=== PATIENT | female | born 1975 | race Caucasian/White ===

== ENCOUNTER 2018-04-09 05:26 | Day surgery (SDC) | payer OTHER, SELFPAY ==
[2018-03-04 11:41] VITALS: BMI 23.3
[2018-04-01 12:03] VITALS: BMI 23.3
[2018-04-01 13:27] LABS: Absolute Lymphocyte Count 1.92 X10^3/ul (0.83-4.51); Absolute Neutrophil Count 5.8 X10^3/uL (2.0-7.7); Basophil# 0.04 X10^3/uL; Basophil% 0.5 % (0-1); Eosinophil# 0.24 X10^3/uL; Eosinophils% 2.7 % (0-5); Hematocrit 44.4 % (37-47); Hemoglobin 14.2 g/dl (12.0-15.0); Lymphocyte # 1.92 X10^3/ul (4.0); Lymphocyte % 21.9 % (19-41); Mean Corpuscular Hgb 28.7 pg (27.0-32.0); Mean Corpuscular Volume 89.7 fL (81-99); Mean Platelet Vol. 10.3 fl (6.2-12.0); Monocyte# 0.78 X10^3/uL; Monocyte% 8.9 % (0-10); Neutrophil # 5.78 X10^3/uL (2.7-7.7); Neutrophil % 65.9 % (47-70); Platelet Count 259 K/mm3 (150-450); RBC Distribution Width CV 12.8 % (11.6-14.6); RBC Distribution Width SD 41.6 fl (35.1-43.9); Red Blood Count 4.95 M/mm3 (4.2-5.4); White Blood Count 8.8 K/mm3 (4.4-11.0)
[2018-04-01 13:28] LABS: POSITIVE COUNT NO; POSITIVE DIFFERENTIAL NO; POSITIVE MORPHOLOGY NO
[2018-04-01 13:49] LABS: Thyroid Stim Hormone (TSH) 1.13 uIU/mL (0.358-3.74)
[2018-04-09] VITALS (15 sets, daily range): BP systolic 74–124; BP diastolic 42–73; PULSE 60–96; RESP 16; TEMP 36.4–36.9; O2SAT 96–100; BMI 23.4
--- NOTE | 2018-04-09 06:04 | PCM.HPOB.BLA ---
- Problem List (1) Abnormal uterine bleeding Status: Chronic Comment: failed medical management and IUD plan TVH BS History and Physical Date of Admission: 04/09/18 Vital Signs 04/01/18 Body Mass Index (BMI) 23.3 04/01/18 Height 5 ft 3 in 04/01/18 Weight: 133 lb 04/01/18 Body Mass Index (BMI) 23.6 04/01/18 Blood Pressure 102/62 Intake Visit Reasons: pre op TVH BS Chief Complaint: pre op appt TVH BS Director Of Finance Required: No Is patient in pain?: No Allergies adhesive Allergy (Mild, Verified 04/01/18 12:03) Rash penicillin G Allergy (Mild, Verified 04/01/18 12:03) family history of allergy/pt has never had reaction to med. Medications thyroid (pork) 60 mg tablet 60 mg PO MOTUWETHFR 06/09/17 [History Confirmed 04/01/18] B-Complex with Vitamin C [Super B Complex-Vitamin C] 1 ea PO QHS 03/26/18 [History Confirmed 04/01/18] Cholecalciferol (Vitamin D3) [Vitamin D3] 2,000 unit PO QHS 03/26/18 [History Confirmed 04/01/18] Fish Oil/Dha/Epa [Fish Oil 1,200 mg Fish Oil] 1 ea PO QHS 03/26/18 [History Confirmed 04/01/18] Magnesium Oxide [Magnesium] 500 mg PO QHS 03/26/18 [History Confirmed 04/01/18] Thyroid [[place] Thyroid] 2 tab PO SUSA 03/26/18 [History Confirmed 04/01/18] Is last menstrual period known: No Post menopausal: No Patient : No : No PFSH Medical History Abnormal Pap smear of cervix (Acute) Thyroid disorder (Acute) Family History Grandfather Heart disease Diabetes Grandmother Diabetes Social History Smoking Status: Never smoker alcohol intake: never substance use type: does not use caffeine: No what type of physical activity do you participate in: none seatbelt use: always do you feel safe at home: Yes additional social history: Engaged ([employer]) [place] Patient works as an Benefits Analyst HPI pre op TVH BS: Details: SHERRY MORGAN is a 42 year old who presents for abnormal uterine bleeding, failed IUD. She is having a TVH BS. Pregancy History 2 Elective abortions Hx Para 1 Spontaneous abortions Hx # Term Pregnancies Ectopic pregnancies Hx # Pregnancies Multiple births # of living children Past Pregnancies Del. Date Name GA/Weeks Outcome Route Bth Weight Infant Gen Labor Lgth Anesthesia Del [facility] Provider FOB Unknown 2004 Wal[place] live - full term ROS Const Constitutional: Denies fatigue, fever(s), headache(s), increased appetite, poor appetite, weight gain or weight loss Cardio Card: Denies chest pain Resp Resp: Denies cough or dyspnea GI GI: Reports as per HPI; denies abdominal pain, constipation, nausea or vomiting : Reports as per HPI; denies difficulty urinating, painful urination, nipple discharge, urinary frequency, urinary incontinence, urinary hesitancy, urinary urgency, vaginal discharge, vaginal dryness, vaginal odor or vaginal itching Skin Skin/Breast: Denies change in hair, breast lump, breast pain, breast skin changes or nipple discharge Exam Const General: cooperative, healthy appearing, comfortable, no acute distress, well developed Nutritional Appearance: average body habitus Orientation: alert [facility] Head: normal to inspection, normocephalic Neck Neck: normal visual inspection, trachea midline Thyroid: thyroid normal Resp Effort & Inspection: normal respiratory effort GI Inspection: normal to inspection, non-distended Palpation: soft, no hepatosplenomegaly General: bladder normal to palpation External Female Exam: normal external appearance, normal appearance of the urethra Urethra: normal appearance of the urethra, normal palpation, no discharge Speculum Exam - Vagina: normal appearance of the vagina, normal vaginal discharge Speculum Exam - Cervix: normal appearance of the cervix, nontender Bimanual Exam- Vagina & Uterus: normal bimanual exam, uterine size normal, bladder normal to palpation, uterine shape normal, No cervical tenderness, uterine mobility normal, uterine consistency normal, normal cervical palpation, uterus non-tender Bimanual Exam- Adnexa, other: normal adnexae, adnexae mobile, no adnexal masses, pelvic support normal Pelvic Support: normal Skin General: no rashes or lesions noted Assessment & Plan Problems 1. Abnormal uterine bleeding N93.9 failed medical management and IUD plan TVH BS Plan plan TVH BS. discussed surgical risks including risks of anesthesia, infection, bleeding, injury to bowel, bladder or blood vessels, and patient wishes to proceed with surgery. UPDATE- I have seen the patient and performed any clinically relevant updates to the history and physical exam. Danette Marks MD
[2018-04-09 06:05] LABS: Internal QC Validated? YES +Cl - CLEAR BKGD; Pregnancy, Urine Negative Negative
[2018-04-09] MEDS: Celecoxib 200 MG Capsule 400 MG PO (06:19)
[2018-04-09] MEDS: Gabapentin 600 MG Tablet PO (06:19)
[2018-04-09] MEDS: Phenazopyridine 95 MG Tablet 190 MG PO (06:20)
[2018-04-09] MEDS: Scopolamine 1mg/72hr Patch 1 PATCH TRANSDERM. (06:20)
[2018-04-09] MEDS: Acetaminophen 500 MG Tablet 1000 MG PO ×2 (06:20→13:29)
[2018-04-09] MEDS: Enoxaparin 40 MG/0.4 ML Syringe SC (06:21)
[2018-04-09] MEDS: Lactated Ringers 1,000 ML 40 ML IV (06:24)
[2018-04-09] MEDS: Magnesium Sulfate 4gm/100mL 4 GM/100 ML IV.SOLN. IV (06:27)
[2018-04-09 07:11] LABS: Bedside Glucose 93 mg/dL (70-110)
--- NOTE | 2018-04-09 07:30 | HYST_PTH ---
PATIENT: SHERRY ETIENNE [place] [facility] [place][id number] AGE/SX: 42/F ROOM: RE04/09/[address]: Dr. Danette Marks MD : 1975 BED: DIS: 04/09/2018 SPEC #: [id number] RECD: 04/09/18 09:12 STATUS: CORTNEY BE #: [id number] ABBY: 04/09/18 07:[address]: Danette Marks DEPT: SURGICAL PATHOLOGY RECD BY: Darrian Jaime ENTERED: 04/09/18 13:15 SP TYPE: HYSTERECT OTHR DR: MD Dr. Jay Slade DO Tissues: Uterus, NOS Procedures: Surgery Specimen Level V HEADER OPERATION: ERAS - hysterectomy, vaginal, bilateral salpingectomy PRE-OP DIAGNOSIS: Abnormal uterine bleeding TISSUE SUBMITTED: Uterus and bilateral fallopian tubes MICROSCOPIC DIAGNOSIS Uterus and bilateral fallopian tubes, vaginal hysterectomy and bilateral salpingectomy: Cervix - chronic inflammation. Endometrium - exogenous hormone effects. Myometrium - adenomyosis. Bilateral fallopian tubes - no pathologic diagnosis. SJ:tiara 04/10/18 MICROSCOPIC DESCRIPTION Slides are reviewed. GROSS DESCRIPTION Received in fixative is one container labeled with the patient's name and designated uterus. The specimen consists of a uterus with attached cervix and detached fallopian tubes. The cervix measures 10 x 5.5 x 4 cm. The uterus with cervix measures 94 gm. The ectocervix is unremarkable. The cervical os is oval in contour. The endocervical canal measures 3.8 cm in length and is grossly unremarkable. The triangular endometrial cavity measures 4 x 2.5 cm. The velvety, light rutherford endometrium measures up to 0.1 cm in average thickness. The myometrium measures 1.7 cm in average thickness and is free of mass lesions. The fallopian tubes measure 4.5 cm in average length and 0.6 cm in average diameter. Normal fimbriated ends are present. No mass lesions or cysts are identified. [employer] sections are submitted as follows: 1 - anterior cervix, 2 - posterior cervix, 3 & 4 - anterior myometrial wall, 5 & 6 - posterior myometrial wall, 7 - one fallopian tube, 8 - the other fallopian tube. / AM:tiara 04/09/18 TC:5 CPT: 83986
--- NOTE | 2018-04-09 07:46 | PCM.OPRPT ---
Problem List (1) Abnormal uterine bleeding Status: Chronic Comment: failed medical management and IUD plan TVH BS Report of Operation Date of Procedure: 04/09/18 Pre-Operative Diagnosis: AUB Post-Operative Diagnosis: SAME Surgery/Procedure Performed:: tvhbs Description of Surgical Findings:: Normal uterus tubes and ovaries left ovarian cyst lead assembler: Celeste Bermudez Type of Anesthesia:: General Special Medications: none Specimen's removed: UTERUS TUBES Drains: queen Estimated Blood Loss (mL): 100 Fluids Replaced: crystalloid Description of Procedure: Patient was taken to the operating room and was placed under general anesthesia was prepped and draped in normal sterile fashion in the dorsal lithotomy position. Preoperative antibiotics and SCDs and Queen catheter was placed inside the bladder. Weighted speculum was placed in the vagina and the anterior and posterior lip of the cervix was grasped with 2 Ethan clamps and circumferentially injected with dilute vasopressin. A circumferential incision was made with a scalpel and the posterior cul-de-sac was entered into sharply and a longneck speculum was placed. The anterior cul-de-sac was also dissected down and entered into sharply and the uterosacral ligaments were clamped cut and suture ligated bilaterally followed by the cardinal ligaments which were Clamped cut and suture ligated bilaterally with 0 Monocryl. The uterus serially descended and progressive bites were taken bilaterally up to the level of the utero-ovarian ligament bilaterally which was clamped transected and double ligated with 0 Monocryl suture and 0 Vicryl free tie. Bilateral fallopian tubes and ovaries were well visualized and noted be within normal limits and the bilateral fallopian tubes were transected across the base with a Amalia clamp and removed and sutured with 0 Vicryl suture. Excellent hemostasis was noted. Posterior peritoneum was reapproximated with 2-0 Vicryl and a modified Castillo stitch was placed through the posterior vaginal cuff and bilateral uterosacral ligaments across the posterior cul-de-sac skimming along to provide apical support to the vagina. The vagina was closed with [id number] 0 Vicryl pop offs including the posterior and anterior peritoneum in the reapproximation. Excellent hemostasis was noted. All instruments removed from the vagina clear urine was noted at the end of the procedure and patient was awoken and taken recovery in stable condition. Grafts/Implants Used: none - Complications none - Admit VTE Documentation VTE Present on Admission: No VTE Mechan Device Prophylaxis: SCD's
--- NOTE | 2018-04-09 07:50 | OP.PCM_ITS ---
Problem List (1) Abnormal uterine bleeding Status: Chronic Comment: failed medical management and IUD plan TVH BS Report of Operation Date of Procedure: 04/09/18 Pre-Operative Diagnosis: AUB Post-Operative Diagnosis: SAME Surgery/Procedure Performed:: tvhbs Description of Surgical Findings:: Normal uterus tubes and ovaries left ovarian cyst moving picture operator: Celeste Bermudez Type of Anesthesia:: General Special Medications: none Specimen's removed: UTERUS TUBES Drains: queen Estimated Blood Loss (mL): 100 Fluids Replaced: crystalloid Description of Procedure: Patient was taken to the operating room and was placed under general anesthesia was prepped and draped in normal sterile fashion in the dorsal lithotomy position. Preoperative antibiotics and SCDs and Queen catheter was placed inside the bladder. Weighted speculum was placed in the vagina and the anterior and posterior lip of the cervix was grasped with 2 Ethan clamps and circumferentially injected with dilute vasopressin. A circumferential incision was made with a scalpel and the posterior cul-de-sac was entered into sharply and a longneck speculum was placed. The anterior cul-de-sac was also dissected down and entered into sharply and the uterosacral ligaments were clamped cut and suture ligated bilaterally followed by the cardinal ligaments which were Clamped cut and suture ligated bilaterally with 0 Monocryl. The uterus serially descended and progressive bites were taken bilaterally up to the level of the utero-ovarian ligament bilaterally which was clamped transected and double ligated with 0 Monocryl suture and 0 Vicryl free tie. Bilateral fallopian tubes and ovaries were well visualized and noted be within normal limits and the bilateral fallopian tubes were transected across the base with a Amalia clamp and removed and sutured with 0 Vicryl suture. Excellent hemostasis was noted. Posterior peritoneum was reapproximated with 2-0 Vicryl and a modified Castillo stitch was placed through the posterior vaginal cuff and bilateral uterosacral ligaments across the posterior cul-de-sac skimming along to provide apical support to the vagina. The vagina was closed with [id number] 0 Vicryl pop offs including the posterior and anterior peritoneum in the reapproximation. Excellent hemostasis was noted. All instruments removed from the vagina clear urine was noted at the end of the procedure and patient was awoken and taken recovery in stable condition. Grafts/Implants Used: none - Complications none - Admit VTE Documentation VTE Present on Admission: No VTE Mechan Device Prophylaxis: SCD's
[2018-04-09] MEDS: Vasopressin 20 UNITS/ML Vial (08:30)
[2018-04-09] MEDS: Ondansetron 4 MG/2 ML Vial IV (08:42)
--- NOTE | 2018-04-09 08:55 | PCM.DC.VHY ---
Discharge Diet: No Restrictions Discharge Activity: Return to Normal Activity, May Not Drive, May Shower May resume sexual activity in: 6-8 weeks Call your doctor if your incision/area has: Continuous Slow Oozing, Sudden Increased Bleeding, Increased Pain/ Swelling, Increased Redness, Foul Smelling Discharge Call your doctor if you observe: Fever of 101 or Higher, Inability to urinate, Inability to have a bowel movement, Using more than one pad per hour Allergies/Adverse Reactions: Allergies adhesive Allergy (Mild, Verified 04/01/18 12:03) Rash BAND AID IF LEAVES ON LONGER THAN 1 DAY penicillin G Allergy (Mild, Verified 04/09/18 05:54) family history of allergy/pt has never had reaction to med. MOTHER HAD ANAPHYLAXIS, PATIENT TOLD TO Avoid Medications to take at Discharge thyroid (pork) 60 mg tablet 60 mg PO MOTUWETHFR 06/09/17 B-Complex with Vitamin C [Super B Complex-Vitamin C] 1 ea PO QHS 03/26/18 Cholecalciferol (Vitamin D3) [Vitamin D3] 2,000 unit PO QHS 03/26/18 Fish Oil/Dha/Epa [Fish Oil 1,200 mg Fish Oil] 1 ea PO QHS 03/26/18 Magnesium Oxide [Magnesium] 500 mg PO QHS 03/26/18 Thyroid [[place] Thyroid] 2 tab PO SUSA 03/26/18 Naproxen [Naprosyn] 250 - 500 mg PO Q8H PRN PRN #30 tablet 04/09/18 Oxycodone HCl/Acetaminophen [Percocet 5-325] 1 - 2 tablet PO Q4H PRN PRN 7 Days #15 tablet 04/09/18 The following prescriptions were given: Oxycodone HCl/Acetaminophen [Percocet 5-325] 1 - 2 tablet PO Q4H PRN PRN 7 Days #15 tablet PRN Reason: Pain Naproxen [Naprosyn] 250 - 500 mg PO Q8H PRN PRN #30 tablet PRN Reason: MILD PAIN Orders to be completed after discharge: Type & Screen Time Frame: 03/26/18, Facility: [facility], Location: Laboratory CBC W/Diff, Automated Time Frame: 03/26/18, Location: Laboratory Primary Care Physician: Jay Nielsen DO [Primary Care Provider] - Test Results: Test results from this visit will be discussed in further detail at your follow-up appointment, if applicable. Please Follow Up With: Danette Marks MD - [phone]
[2018-04-09] MEDS: Lactated Ringers 1,000 ML 100 ML IV ×2 (10:10→12:02)
[2018-04-09] MEDS: Ketorolac 30 MG/ML Syringe IV ×2 (12:00→18:55)
[2018-04-09] MEDS: oxyCODONE 5 MG Tablet PO (14:41)
[2018-04-09] MEDS: Ondansetron ODT 4 MG Tablet PO (14:42)
== END 2018-04-09 19:50 | disposition home or self-care (01) ==
LOC: SDC 05:29 → AC 05:29 → MS3 10:36
PROVIDERS: Anesthesiology; Family Provider Student in an Organized Health Care Education/Training Program; PCP Student in an Organized Health Care Education/Training Program; Referring Provider Obstetrics & Gynecology; Visit Provider Obstetrics & Gynecology
PROC: (CPT 58260; principal; 2018-04-09 07:10)
DX: N80.0 Endometriosis of uterus (principal); N72 Inflammatory disease of cervix uteri; N93.9 Abnormal uterine and vaginal bleeding, unspecified; E06.9 Thyroiditis, unspecified
CPT/HCPCS: 58262; 36415; 81025; 82962; 84443; 85025; 86850; 86900; 88307; J7120; J2405

== ENCOUNTER → 2022-07-12 | Outpatient (CLI) | payer OTHER, SELFPAY ==
[2022-07-18 00:06] LABS: Almond <0.10 kU/L (Class 0); Banana 0.65 kU/L (Class II); Barley, Whole Grain 0.11 kU/L (Class 0/I); Beef <0.10 kU/L (Class 0); Brazil Nut <0.10 kU/L (Class 0); Cashew <0.10 kU/L (Class 0); Chicken <0.10 kU/L (Class 0); Clam <0.10 kU/L (Class 0); Codfish <0.10 kU/L (Class 0); Corn 0.18 kU/L (Class 0/I); Egg, White 0.26 kU/L (Class 0/I); Gluten <0.10 kU/L (Class 0); Hazelnut/Filbert 0.12 kU/L (Class 0/I); Milk (Cow) <0.10 kU/L (Class 0); Oat 0.17 kU/L (Class 0/I); Pea <0.10 kU/L (Class 0); Pecan <0.10 kU/L (Class 0); Pork 0.11 kU/L (Class 0/I); Potato, White 0.13 kU/L (Class 0/I); Rice <0.10 kU/L (Class 0); SCALLOP <0.10 kU/L (Class 0); SESAME SEED 0.44 kU/L (Class I); Shrimp <0.10 kU/L (Class 0); Soybean <0.10 kU/L (Class 0); Strawberry <0.10 kU/L (Class 0); Tomato 0.76 kU/L (Class II); Wheat 0.15 kU/L (Class 0/I); Yeast <0.10 kU/L (Class 0)
== END | disposition home or self-care (01) ==
PROVIDERS: PCP Student in an Organized Health Care Education/Training Program; Referring Provider Otolaryngology Otolaryngology/Facial Plastic Surgery; Visit Provider Otolaryngology Otolaryngology/Facial Plastic Surgery
DX: T78.40XA Allergy, unspecified, initial encounter (principal)
CPT/HCPCS: 36415; 86003